=== PATIENT | female | born 1995 | race Caucasian/White ===

== ENCOUNTER 2021-01-26 17:26 | Emergency (ER) | payer OTHER ==
[2021-01-26 17:47] VITALS: BP 110/75; PULSE 65; TEMP 98.5; BMI 24.0
[2021-01-26] MEDS ORDERED: predniSONE 20 MG TABLET (UD) PO ONE (17:59)
[2021-01-26] MEDS ORDERED: predniSONE 10 MG TABLET (UD) ONE (18:19)
== END 2021-01-26 20:13 | disposition home or self-care (01) ==
LOC: FER 17:26
DX: T78.40XA Allergy, unspecified, initial encounter (principal); I95.9 Hypotension, unspecified
CPT/HCPCS: 99283-25